=== PATIENT | male | born 1970 | race Caucasian/White ===

== ENCOUNTER 2018-01-04 14:39 | Emergency (ER) | payer OTHER, MEDICARE ==
[~2018-01-04] VITALS: Ht 175.3 cm; Wt 110.0 kg
[2018-01-04 14:40] VITALS: BP 132/78; PULSE 74; RESP 16; TEMP 98; O2SAT 98
[2018-01-04] MEDS ORDERED: CIPRHC10A RIGHT EAR (15:17)
--- NOTE | 2018-01-04 15:17 | PD ---
HPI Chief Complaint: Gallegos act Time Seen by Provider: 15:01 Travel History International Travel<30 days: No Contact w/Intl Traveler<30days: No Traveled to known affect area: No History of Present Illness HPI The patient is a approximately [age]-old male who presents to the emergency department via police as a Gallegos act. The patient apparently has a history of schizoaffective disorder and is currently taken Risperdal. The patient became aggressive toward staff and other members where he is staying, therefore, was placed under a Gallegos act. The patient does have a history of schizoaffective disorder, he denies any current hallucinations, delusions, alcohol use, or illicit drug use. He immediately requests that he have a nicotine patch as he will go through withdrawal, smokes on a daily basis. He also complains of some drainage and pain from the right ear. He denies any suicidal or homicidal ideation. Symptoms are moderate. PFSH Past Medical History Narrative Medical Schizoaffective disorder Past Surgical History Narrative Surgical Sutures right hand Social History Alcohol Use: No Tobacco Use: Yes Substance Use: No Allergies-Medications (Allergen,Severity, Reaction): Coded Allergies: aripiprazole (Verified Allergy, Severe, Rash, 01/04/18) chlorpromazine (Verified Allergy, Severe, Lethargy, 01/04/18) divalproex sodium (Verified Allergy, Severe, Anaphylaxis, 01/04/18) nortriptyline (Verified Allergy, Severe, Anaphylaxis, 01/04/18) Reported Meds & Prescriptions Reported Meds & Active Scripts Active Cipro Hc Otic Drops (Ciprofloxacin/Hydrocortisone) 0.2-1% Susp 3 Drop RIGHT EAR BID 7 Days Reported Risperdal Consta Inj (Risperidone) 50 Mg/2 Ml Inj 50 Mg IM Q14D Review of Systems Except as stated in HPI: all other systems reviewed are Neg HENT: Positive: Earache, No: Lightheadedness Cardiovascular: No: Chest Pain or Discomfort Respiratory: No: Shortness of Breath Gastrointestinal: No: Nausea, Vomiting, Abdominal Pain Musculoskeletal: No: Weakness, Pain Psychiatric: Positive: Disorder of Thought, Mood Disorder, No: Suicidal Ideations, Substance Abuse, Homicidal Ideation Physical Exam Narrative GENERAL: Awake, alert, approximately 52-year-old male who appears his stated age and is in no acute respiratory distress. SKIN: Focused skin assessment warm/dry. HEAD: Atraumatic. Normocephalic. EYES: Pupils equal and round. No scleral icterus. No injection or drainage. ENT: The left tympanic membrane is translucent. Left EAC is clear. Right tympanic membrane is translucent, right EAC is inflamed with drainage and erythema. NECK: Trachea midline. No JVD. CARDIOVASCULAR: Regular rate and rhythm. No murmur appreciated. RESPIRATORY: No accessory muscle use. Clear to auscultation. Breath sounds equal bilaterally. GASTROINTESTINAL: Abdomen soft, non-tender, nondistended. No rebound tenderness. MUSCULOSKELETAL: No obvious deformities. No clubbing. No cyanosis. No edema. NEUROLOGICAL: Awake and alert. No obvious cranial nerve deficits. Motor grossly within normal limits. Normal speech. Nonfocal. Oriented 4. Follows commands without difficulty. PSYCHIATRIC: Appropriate mood and affect; insight and judgment normal. Data Data Last Documented VS Vital Signs Date Time Temp Pulse Resp B/P (MAP) Pulse Ox O2 Delivery O2 Flow Rate FiO2 01/04/18 16:06 98.7 75 16 110/60 (77) 97 Room Air Orders Orders Complete Blood Count With Diff (01/04/18 15:08) Comprehensive Metabolic Panel (01/04/18 15:08) Thyroid Stimulating Hormone (01/04/18 15:08) Psych Screen (01/04/18 15:08) Drug Screen, Random Urine (01/04/18 15:08) Nicotine 21 Mg Patch.24 Hr (Habitrol 21 (01/04/18 15:30) Mvtruant-Uhtxmulb-Of Otic Soln (Cortispo (01/04/18 15:30) Labs Laboratory Tests Test 01/04/18 15:00 01/04/18 15:30 White Blood Count 8.8 TH/MM3 Red Blood Count 5.35 MIL/MM3 Hemoglobin 15.9 GM/DL Hematocrit 47.6 % Mean Corpuscular Volume 89.0 FL Mean Corpuscular Hemoglobin 29.6 PG Mean Corpuscular Hemoglobin Concent 33.3 % Red Cell Distribution Width 13.8 % Platelet Count 269 TH/MM3 Mean Platelet Volume 9.7 FL Neutrophils (%) (Auto) 65.5 % Lymphocytes (%) (Auto) 24.0 % Monocytes (%) (Auto) 6.4 % Eosinophils (%) (Auto) 3.1 % Basophils (%) (Auto) 1.0 % Neutrophils # (Auto) 5.8 TH/MM3 Lymphocytes # (Auto) 2.1 TH/MM3 Monocytes # (Auto) 0.6 TH/MM3 Eosinophils # (Auto) 0.3 TH/MM3 Basophils # (Auto) 0.1 TH/MM3 CBC Comment DIFF FINAL Differential Comment Blood Urea Nitrogen 12 MG/DL Creatinine 1.09 MG/DL Random Glucose 121 MG/DL Total Protein 8.0 GM/DL Albumin 3.7 GM/DL Calcium Level 9.5 MG/DL Alkaline Phosphatase 63 U/L Aspartate Amino Transf (AST/SGOT) 19 U/L Alanine Aminotransferase (ALT/SGPT) 24 U/L Total Bilirubin 0.4 MG/DL Sodium Level 138 MEQ/L Potassium Level 3.8 MEQ/L Chloride Level 106 MEQ/L Carbon Dioxide Level 24.9 MEQ/L Anion Gap 7 MEQ/L Estimat Glomerular Filtration Rate 58 ML/MIN Thyroid Stimulating Hormone 3rd Gen 1.210 uIU/ML Urine Opiates Screen NEG Urine Barbiturates Screen NEG Urine Amphetamines Screen NEG Urine Benzodiazepines Screen NEG Urine Cocaine Screen NEG Urine Cannabinoids Screen NEG MDM Medical Decision Making Medical Screen Exam Complete: Yes Emergency Medical Condition: Yes Medical Record Reviewed: Yes Interpretation(s) Laboratory Tests Test 01/04/18 15:00 01/04/18 15:30 White Blood Count 8.8 TH/MM3 Red Blood Count 5.35 MIL/MM3 Hemoglobin 15.9 GM/DL Hematocrit 47.6 % Mean Corpuscular Volume 89.0 FL Mean Corpuscular Hemoglobin 29.6 PG Mean Corpuscular Hemoglobin Concent 33.3 % Red Cell Distribution Width 13.8 % Platelet Count 269 TH/MM3 Mean Platelet Volume 9.7 FL Neutrophils (%) (Auto) 65.5 % Lymphocytes (%) (Auto) 24.0 % Monocytes (%) (Auto) 6.4 % Eosinophils (%) (Auto) 3.1 % Basophils (%) (Auto) 1.0 % Neutrophils # (Auto) 5.8 TH/MM3 Lymphocytes # (Auto) 2.1 TH/MM3 Monocytes # (Auto) 0.6 TH/MM3 Eosinophils # (Auto) 0.3 TH/MM3 Basophils # (Auto) 0.1 TH/MM3 CBC Comment DIFF FINAL Differential Comment Blood Urea Nitrogen 12 MG/DL Creatinine 1.09 MG/DL Random Glucose 121 MG/DL Total Protein 8.0 GM/DL Albumin 3.7 GM/DL Calcium Level 9.5 MG/DL Alkaline Phosphatase 63 U/L Aspartate Amino Transf (AST/SGOT) 19 U/L Alanine Aminotransferase (ALT/SGPT) 24 U/L Total Bilirubin 0.4 MG/DL Sodium Level 138 MEQ/L Potassium Level 3.8 MEQ/L Chloride Level 106 MEQ/L Carbon Dioxide Level 24.9 MEQ/L Anion Gap 7 MEQ/L Estimat Glomerular Filtration Rate 58 ML/MIN Thyroid Stimulating Hormone 3rd Gen 1.210 uIU/ML Urine Opiates Screen NEG Urine Barbiturates Screen NEG Urine Amphetamines Screen NEG Urine Benzodiazepines Screen NEG Urine Cocaine Screen NEG Urine Cannabinoids Screen NEG Differential Diagnosis Differential diagnosis includes otitis media, otitis externa, schizoaffective disorder, depressive disorder, mood disorder, psychosis, delusional disorder, schizophrenia. Narrative Course Labs are drawn and sent. The patient will be prescribed eardrops for right otitis externa. The patient was administered a nicotine patch. The patient will have a psychiatric evaluation as he is a Gallegos act. Labs are unremarkable. Patient is medically cleared to be evaluated by psychiatry. Disposition as per psych. Diagnosis Primary Impression: Schizoaffective disorder Qualified Codes: F25.9 - Schizoaffective disorder, unspecified Additional Impression: Right otitis externa Qualified Codes: H60.501 - Unspecified acute noninfective otitis externa, right ear Patient Instructions: General Instructions Med/Other Pt SpecificInfo: Prescription(s) given Scripts Ciprofloxacin-Hydrocortisone Otic Drops (Cipro Hc Otic Drops) 0.2-1% Susp 3 DROP RIGHT EAR BID for Infection for 7 Days, #1 BOTTLE 0 Refills Prov: South John MD 01/04/18 Condition: Stable South John MD Jan 04, 2018 15:17
[2018-01-04] MEDS ORDERED: RISP50P IM (15:25)
[2018-01-04] MEDS ORDERED: NEOMYCIN/POLYMYXIN/HYDROCORT OTIC SOLN 10 ML BTL RIGHT EAR ONE (15:30)
[2018-01-04] MEDS ORDERED: NICOTINE 21 MG/24 HR PATCH T-DERMAL ONE (15:30)
[2018-01-04 15:39] LABS: AUTOMATED NEUTROPHIL # 5.8 TH/MM3 (1.8-7.7); BASOPHIL # 0.1 TH/MM3 (0-0.2); EOSINOPHIL # 0.3 TH/MM3 (0-0.4); EOSINOPHIL % 3.1 % (0.0-4.0); HEMATOCRIT 47.6 % (39.0-51.0); HEMOGLOBIN 15.9 GM/DL (13.0-17.0); LYMPHOCYTE # 2.1 TH/MM3 (1.0-4.8); MEAN CORPUSCULAR HEMOGLOBIN 29.6 PG (27.0-34.0); MEAN CORPUSCULAR HGB CONC 33.3 % (32.0-36.0); MEAN PLATELET VOLUME 9.7 FL (7.0-11.0); MONO % 6.4 % (0.0-8.0); MONOCYTE # 0.6 TH/MM3 (0-0.9); NEUT % 65.5 % (16.0-70.0); PLATELET COUNT 269 TH/MM3 (150-450); RED BLOOD COUNT 5.35 MIL/MM3 (4.50-5.90); RED CELL DISTRIBUTION WIDTH 13.8 % (11.6-17.2); WHITE BLOOD COUNT 8.8 TH/MM3 (4.0-11.0)
[2018-01-04 16:06] VITALS: BP 110/60; PULSE 75; RESP 16; TEMP 98.7; O2SAT 97
[2018-01-04 16:11] LABS: ALBUMIN 3.7 GM/DL (3.4-5.0); ALT (GPT) 24 U/L (12-78); AST (GOT) 19 U/L (15-37); BICARBONATE 24.9 MEQ/L (21.0-32.0); BLOOD UREA NITROGEN 12 MG/DL (7-18); CALCIUM 9.5 MG/DL (8.5-10.1); CHLORIDE 106 MEQ/L (98-107); CREATININE 1.09 MG/DL (0.60-1.30); GLOMERULAR FILTRATION RATE 58 ML/MIN (>89); GLUCOSE,RANDOM 121 MG/DL (74-106); SODIUM (NA) 138 MEQ/L (136-145)
[2018-01-04 16:20] LABS: ALKALINE PHOSPHATASE 63 U/L (45-117); TOTAL BILIRUBIN ADULT 0.4 MG/DL (0.2-1.0)
[2018-01-05 00:26] VITALS: BP 139/79; PULSE 61; RESP 17; TEMP 97.9; O2SAT 97
--- NOTE | 2018-01-05 13:29 | PD ---
History of Present Illness Chief Complaint: Psychiatric Symptoms Time Seen by Provider: 13:00 Travel History International Travel<30 Days: No Contact w/Intl Traveler<30days: No Known affected area: No Legal Status Legal Status: Gallegos Act Gallegos Act Signed By: Gallegos Act Comment: Psychoplogist at [facility] History of Present Illness: History of Present Illness HPI The patient is a year-old male with history of schizoaffective disorder, bipolar type who presents to the emergency department via police as a Gallegos act. The Gallegos act alleges that the patient has been decompensating over the past 2 days. That he has been increasingly agitated as well as verbally aggressive. He refuses redirection and is threatening both residents and staff today. Allegedly assaulting a staff requiring intervention. The patient denies that he physically assaulted anyone. He states that he hates it there at [facility] and he does not want to go back there. Patient is seen. Has been monitored in secure environment. He has presented no behavioral dysregulation, no aggressive behavior or no agitation. Electronic medical record is reviewed in the previous contact with this patient. The patient is alert, oriented, cooperative. His speech is clear. He does state that he understands why he is here and that he wants to feel secure. He states that he is having a hard time at [facility] with other residents trying to get his cigarettes. The patient does not present any psychosis, mick, hypomania. Denies any suicidal or homicidal ideation, intent or plan.. The patient reports that he has been medication compliant. While here he slept well and ate well. The remainder of the psychiatric review of system is negative. PFSH Past Medical History Bipolar Disorder: Yes Diminished Hearing: No Schizophrenia: Yes Past Surgical History Surgical History: No Previous Surgery Psychiatric History Psychiatric History Hx Psychiatric Treatment: Patient receives follow-up through the FACT team. He reports that he has been hospitalized in the past. Mostly in [facility]. History of Inpatient Treatment: Yes Guns or firearms in home: No Social History Single never . Lives at an [facility]. On disability and unemployed Hx Alcohol Use: No Hx Tobacco Use: Yes Hx Substance Use: No Hx of Substance Use Treatment: No Family Psychiatric History Negative Allergies-Medications (Allergen,Severity, Reaction): Coded Allergies: aripiprazole (Verified Allergy, Severe, Rash, 01/04/18) chlorpromazine (Verified Allergy, Severe, Lethargy, 01/04/18) divalproex sodium (Verified Allergy, Severe, Anaphylaxis, 01/04/18) nortriptyline (Verified Allergy, Severe, Anaphylaxis, 01/04/18) Reported Meds & Prescriptions Reported Meds & Active Scripts Active Cipro Hc Otic Drops (Ciprofloxacin/Hydrocortisone) 0.2-1% Susp 3 Drop RIGHT EAR BID 7 Days Reported Risperdal Consta Inj (Risperidone) 50 Mg/2 Ml Inj 50 Mg IM Q14D Review of Systems Psychiatric: COMPLAINS OF: Mood changes Except as stated in HPI: all other systems reviewed are Neg Mental Status Examination Appearance: Disheveled Consciousness: Alert Orientation: x4 Motor Activity: Normal gait Speech: Unremarkable Language: Adequate Fund of Knowledge: Poor Attention and Concentration: Adequate Memory: Unremarkable Mood: Appropriate Affect: Appropriate Thought Process & Associations: Intact, Logical, Goal directed Thought Content: Appropriate Hallucination Type: None Delusion Type: None Suicidal Ideation: No Suicidal Plan: No Suicidal Intention: No Homicidal Ideation: No Homicidal Plan: No Homicidal Intention: No Insight: Fair Judgment: Impulsive MDM Medical Decision Making Medical Record Reviewed: Yes Assessment/Plan The patient is a year-old male with history of schizoaffective disorder, bipolar type who presents to the emergency department via police as a Gallegos act. The Gallegos act alleges that the patient has been decompensating over the past 2 days. That he has been increasingly agitated as well as verbally aggressive. He refuses redirection and is threatening both residents and staff today. Allegedly assaulting a staff requiring intervention. The patient denies that he physically assaulted anyone. He states that he hates it there at [facility] and he does not want to go back there. Patient is seen. Has been monitored in secure environment. He has presented no behavioral dysregulation, no aggressive behavior or no agitation The BA is lifted. No agitation and no mick. Denies any suicidal or homicidal ideation. Admits to having a difficult time adjusting to being at [facility]. Patient at this time was provided psychoeducation and support. Continue follow-up with the FACT team Orders Orders Complete Blood Count With Diff (01/04/18 15:08) Comprehensive Metabolic Panel (01/04/18 15:08) Thyroid Stimulating Hormone (01/04/18 15:08) Psych Screen (01/04/18 15:08) Drug Screen, Random Urine (01/04/18 15:08) Nicotine 21 Mg Patch.24 Hr (Habitrol 21 (01/04/18 15:30) Fuwtpqey-Gnzwlwph-Wz Otic Soln (Cortispo (01/04/18 15:30) Diet Regular Basic (01/05/18 Dinner) Diet Regular Basic (01/04/18 Dinner) Diet Regular Basic (01/05/18 Breakfast) Diet Regular Basic (01/05/18 Lunch) Results Vital Signs Date Time Temp Pulse Resp B/P (MAP) Pulse Ox O2 Delivery O2 Flow Rate FiO2 01/05/18 00:26 97.9 61 17 139/79 (99) 97 Room Air 01/04/18 16:06 98.7 75 16 110/60 (77) 97 Room Air 01/04/18 14:40 98.0 74 16 132/78 (96) 98 Laboratory Tests Test 01/04/18 15:00 01/04/18 15:30 White Blood Count 8.8 Red Blood Count 5.35 Hemoglobin 15.9 Hematocrit 47.6 Mean Corpuscular Volume 89.0 Mean Corpuscular Hemoglobin 29.6 Mean Corpuscular Hemoglobin Concent 33.3 Red Cell Distribution Width 13.8 Platelet Count 269 Mean Platelet Volume 9.7 Neutrophils (%) (Auto) 65.5 Lymphocytes (%) (Auto) 24.0 Monocytes (%) (Auto) 6.4 Eosinophils (%) (Auto) 3.1 Basophils (%) (Auto) 1.0 Neutrophils # (Auto) 5.8 Lymphocytes # (Auto) 2.1 Monocytes # (Auto) 0.6 Eosinophils # (Auto) 0.3 Basophils # (Auto) 0.1 CBC Comment DIFF FINAL Differential Comment Blood Urea Nitrogen 12 Creatinine 1.09 Random Glucose 121 Total Protein 8.0 Albumin 3.7 Calcium Level 9.5 Alkaline Phosphatase 63 Aspartate Amino Transf (AST/SGOT) 19 Alanine Aminotransferase (ALT/SGPT) 24 Total Bilirubin 0.4 Sodium Level 138 Potassium Level 3.8 Chloride Level 106 Carbon Dioxide Level 24.9 Anion Gap 7 Estimat Glomerular Filtration Rate 58 Thyroid Stimulating Hormone 3rd Gen 1.210 Urine Opiates Screen NEG Urine Barbiturates Screen NEG Urine Amphetamines Screen NEG Urine Benzodiazepines Screen NEG Urine Cocaine Screen NEG Urine Cannabinoids Screen NEG Diagnosis Primary Impression: Schizoaffective disorder Additional Impression: Right otitis externa Psychiatrically Cleared: Yes Patient Instructions: General Instructions Med/ Other Pt Specific Info: No Change to Meds Prescriptions Ciprofloxacin-Hydrocortisone Otic Drops (Cipro Hc Otic Drops) 0.2-1% Susp 3 DROP RIGHT EAR BID for Infection for 7 Days, #1 BOTTLE 0 Refills Prov: South John MD 01/04/18 Disposition: 01 DISCHARGE HOME Condition: Stable Problem Qualifiers Primary Impression: Schizoaffective disorder Qualified Codes: F25.9 - Schizoaffective disorder, unspecified Additional Impression: Right otitis externa Qualified Codes: H60.501 - Unspecified acute noninfective otitis externa, right ear Luz Gillis [facility] Jan 05, 2018 13:29
--- NOTE | 2018-01-05 13:37 | PD ---
Physical Exam Time Seen by Provider: 13:35 LANRE Cardozo has evaluated patient, lifted Gallegos act and cleared the patient for discharge. Data Data Last Documented VS Vital Signs Date Time Temp Pulse Resp B/P (MAP) Pulse Ox O2 Delivery O2 Flow Rate FiO2 01/05/18 00:26 97.9 61 17 139/79 (99) 97 Room Air Orders Orders Complete Blood Count With Diff (01/04/18 15:08) Comprehensive Metabolic Panel (01/04/18 15:08) Thyroid Stimulating Hormone (01/04/18 15:08) Psych Screen (01/04/18 15:08) Drug Screen, Random Urine (01/04/18 15:08) Nicotine 21 Mg Patch.24 Hr (Habitrol 21 (01/04/18 15:30) Wehcryjp-Besmofow-Yk Otic Soln (Cortispo (01/04/18 15:30) Diet Regular Basic (01/05/18 Dinner) Diet Regular Basic (01/04/18 Dinner) Diet Regular Basic (01/05/18 Breakfast) Diet Regular Basic (01/05/18 Lunch) Labs Laboratory Tests Test 01/04/18 15:00 01/04/18 15:30 White Blood Count 8.8 TH/MM3 Red Blood Count 5.35 MIL/MM3 Hemoglobin 15.9 GM/DL Hematocrit 47.6 % Mean Corpuscular Volume 89.0 FL Mean Corpuscular Hemoglobin 29.6 PG Mean Corpuscular Hemoglobin Concent 33.3 % Red Cell Distribution Width 13.8 % Platelet Count 269 TH/MM3 Mean Platelet Volume 9.7 FL Neutrophils (%) (Auto) 65.5 % Lymphocytes (%) (Auto) 24.0 % Monocytes (%) (Auto) 6.4 % Eosinophils (%) (Auto) 3.1 % Basophils (%) (Auto) 1.0 % Neutrophils # (Auto) 5.8 TH/MM3 Lymphocytes # (Auto) 2.1 TH/MM3 Monocytes # (Auto) 0.6 TH/MM3 Eosinophils # (Auto) 0.3 TH/MM3 Basophils # (Auto) 0.1 TH/MM3 CBC Comment DIFF FINAL Differential Comment Blood Urea Nitrogen 12 MG/DL Creatinine 1.09 MG/DL Random Glucose 121 MG/DL Total Protein 8.0 GM/DL Albumin 3.7 GM/DL Calcium Level 9.5 MG/DL Alkaline Phosphatase 63 U/L Aspartate Amino Transf (AST/SGOT) 19 U/L Alanine Aminotransferase (ALT/SGPT) 24 U/L Total Bilirubin 0.4 MG/DL Sodium Level 138 MEQ/L Potassium Level 3.8 MEQ/L Chloride Level 106 MEQ/L Carbon Dioxide Level 24.9 MEQ/L Anion Gap 7 MEQ/L Estimat Glomerular Filtration Rate 58 ML/MIN Thyroid Stimulating Hormone 3rd Gen 1.210 uIU/ML Urine Opiates Screen NEG Urine Barbiturates Screen NEG Urine Amphetamines Screen NEG Urine Benzodiazepines Screen NEG Urine Cocaine Screen NEG Urine Cannabinoids Screen NEG MDM Supervised Visit with SASKIA: LANRE Moy has evaluated patient, lifted El rajan and cleared the patient for discharge. Patient contracts safety. Denies suicidal or homicidal ideations. Patient will be provided community resource packet to /CARMEN for follow-up. Has friends and family for support. Patient was medically cleared by alternate provider prior to psych screening. Patient has been evaluated by psychiatry and and is now cleared for discharge. Diagnosis Primary Impression: Schizoaffective disorder Qualified Codes: F25.9 - Schizoaffective disorder, unspecified Additional Impression: Right otitis externa Qualified Codes: H60.501 - Unspecified acute noninfective otitis externa, right ear Referrals: CARMEN (Out patient) [facility] Primary Care Physician Psychiatrist Sandhya RAJAN [facility] Patient Instructions: General Instructions, Otitis Externa (ED), Schizoaffective Disorder (ED) Additional Instruction: Take antibiotics as prescribed and complete full course Ibuprofen or Tylenol as directed and as needed to reduce pain and fever Rdwd-eab-gxmierw antihistamines or decongestants as directed and as needed for symptom management Avoid getting water in the ears Do not put anything in the ears; including Q-tips Follow-up with primary care provider Return to the emergency department immediately with worsening of symptoms Contract safety to your self and others Follow-up with psychiatry Follow-up with primary care provider Follow-up with Saad Thompson Return to the emergency department immediately with worsening of symptoms Med/Other Pt SpecificInfo: Prescription(s) given Scripts Ciprofloxacin-Hydrocortisone Otic Drops (Cipro Hc Otic Drops) 0.2-1% Susp 3 DROP RIGHT EAR BID for Infection for 7 Days, #1 BOTTLE 0 Refills Prov: South John MD 01/04/18 Disposition: 01 DISCHARGE HOME Condition: Stable Ana Ortiz [facility] Jan 05, 2018 13:36
[2018-01-05 14:20] VITALS: BP 128/68
== END 2018-01-05 15:18 | disposition home or self-care (01) ==
LOC: NEPJ 14:39 → EDBD 14:39 → NEDAMB 01-05 15:18
DX: F25.0 Schizoaffective disorder, bipolar type (principal); H60.91 Unspecified otitis externa, right ear; Z72.0 Tobacco use; Z88.8 Allergy status to other drugs, medicaments and biological substances; Z79.899 Other long term (current) drug therapy
CPT/HCPCS: 80053; 80307; 84443; 85025; 99284